=== PATIENT | male | born 1965 | race Caucasian/White ===

== ENCOUNTER 2019-07-09 16:11 | Observation (INO) ==
[2019-07-09 17:23] LABS: BUN/Creatinine Ratio 28 (6-26); Blood Urea Nitrogen 69 mg/dL (6-20); Carbon Dioxide 23 mEq/L (23-29); Chloride 98 mEq/L (98-107); Glucose 141 mg/dL (70-105); Osmolality,Calculated 282 (280-300); Potassium 6.8 mEq/L (3.5-5.1); Sodium 125 mEq/L (136-145); eGFR For African Americans 33 (> 60); eGFR For Non-African Americans 27 (> 60)
[2019-07-09] MEDS ORDERED: *HR* Dextrose 50 % in Water (Syg) 50 ML SYRINGE IVP ONE (17:54)
[2019-07-09] MEDS ORDERED: Insulin Human Regular 10 UNIT in 0.9 % Sodium Chloride 10 ML IV ONE ×2 (17:54→22:32)
[2019-07-09] MEDS ORDERED: 0.9 % Sodium Chloride 1,000 ML IVC ONE (17:55)
[2019-07-09] MEDS ORDERED: Calcium Gluconate 1gm/50mL 1 GM/50 ML BAG IVPB ONE ×2 (17:57→23:00)
[2019-07-09 18:13] LABS: Basophils # 0.1 K/mcL (0.0-0.2); Basophils % 0.4 %; Eosinophils # 0.7 K/mcL (0.0-0.6); Eosinophils % 4.1 %; Hematocrit 28.2 % (37.5-50.1); Hemoglobin 9.7 g/dL (12.9-16.9); Immature Granulocytes % 0.9 % (0-4); Lymphocytes # 0.9 K/mcL (0.6-4.6); Lymphocytes % 5.4 %; Mean Corpuscular HGB Conc 34.4 g/dL (31.6-35.5); Mean Corpuscular Hemoglobin 37.2 pg (28.0-33.3); Mean Platelet Volume 10.3 fL (9.4-12.4); Monocytes # 1.7 K/mcL (0.0-1.3); Monocytes % 10.4 %; Neutrophils # 12.8 K/mcL (1.6-8.9); Platelet Count 218 K/mcL (140-400); Red Blood Count 2.61 M/mcL (4.19-5.50); Red Cell Distribution Width 13.9 % (11.5-14.5); Segmented Neutrophils % 78.8 %; White Blood Count 16.2 K/mcL (4.3-11.1)
[2019-07-09 18:18] LABS: Alanine Aminotransferase 49 Units/L (7-52); Albumin 3.3 g/dL (3.5-5.7); Albumin/Globulin Ratio 1.2 (1.1-2.2); Alkaline Phosphatase 111 Units/L (34-104); Aspartate Amino Transferase 61 Units/L (13-39); Bilirubin,Direct 0.8 mg/dL (0.0-0.2); Bilirubin,Indirect 2.2 mg/dL (0.0-1.2); Globulin 2.8 g/dL (2.4-3.5); Lipase 110 Units/L (11-82); Total Protein 6.1 g/dL (6.4-8.9); Troponin I < 0.03 ng/mL (< 0.04)
[2019-07-09 18:24] LABS: INR 1.5; Prothrombin Time 17.4 Seconds (9.4-12.1)
[2019-07-09 19:34] LABS: Bilirubin,Urine Negative (Negative); Blood,Urine Negative (Negative); Clarity,Urine Clear (Clear); Color,Urine Yellow (Yellow); Glucose,Urine (UA) Normal (Normal); Ketones,Urine Negative (Negative); Leukocyte Esterase,Urine Negative (Negative); Nitrite,Urine Negative (Negative); PH,Urine 5.5 pH Units (5.0-8.0); Protein,Urine Negative (Neg-Trace); Specific Gravity,Urine 1.017 (1.010-1.025); Urobilinogen,Urine Normal (Normal)
[2019-07-09] MEDS ORDERED: Albuterol 2.5 MG/3 ML NEBULIZER IH ONE ×2 (19:40→22:31)
[2019-07-09] MEDS ORDERED: Naloxone 0.4 MG/ML INJ IVP PRN (22:01)
[2019-07-09 22:09] LABS: Calcium 8.9 mg/dL (8.6-10.3); Potassium 6.8 mEq/L (3.5-5.1)
[2019-07-09 22:37] LABS: Sodium, Urine < 10.0 mEq/L
[2019-07-09] MEDS ORDERED: D5% in Water 1,000 ML IVC PRN (22:37)
[2019-07-09] MEDS ORDERED: *HR* Dextrose 50 % in Water (Syg) 50 ML SYRINGE IVP PRN (22:37)
[2019-07-09] MEDS ORDERED: Dextrose Gel 15 GM/37.5 ML TUBE PO PRN ×2 (22:37)
[2019-07-09] MEDS: D5% in 0.9% NACL 1,000 ML IVC SCH (22:45)
[2019-07-09 22:59] LABS: Potassium,Urine 49.9 mEq/L
[2019-07-10 02:28] LABS: Calcium 9.1 mg/dL (8.6-10.3); Potassium 5.4 mEq/L (3.5-5.1)
[2019-07-10 05:40] LABS: Hematocrit 24.5 % (37.5-50.1); Hemoglobin 8.5 g/dL (12.9-16.9); Mean Corpuscular HGB Conc 34.7 g/dL (31.6-35.5); Mean Corpuscular Hemoglobin 36.6 pg (28.0-33.3); Mean Corpuscular Volume 105.6 fL (83.0-100.0); Mean Platelet Volume 9.7 fL (9.4-12.4); Platelet Count 157 K/mcL (140-400); Red Blood Count 2.32 M/mcL (4.19-5.50); White Blood Count 13.9 K/mcL (4.3-11.1)
[2019-07-10 05:54] LABS: Bilirubin,Direct 0.8 mg/dL (0.0-0.2); Bilirubin,Indirect 1.5 mg/dL (0.0-1.2); Bilirubin,Total 2.3 mg/dL (0.3-1.0); Calcium 8.9 mg/dL (8.6-10.3); Potassium 5.4 mEq/L (3.5-5.1)
[2019-07-10 05:58] LABS: Albumin/Globulin Ratio 1.1 (1.1-2.2); Globulin 2.8 g/dL (2.4-3.5); Total Protein 5.8 g/dL (6.4-8.9)
[2019-07-10] MEDS: D5% in 0.9% NACL 1,000 ML IVC SCH (09:07)
[2019-07-10] MEDS: Albumin 25% 25gram/100mL 25 GM/100 ML IV.SOLN IVPB SCH ×3 (11:47→14:55)
[2019-07-10 14:36] LABS: Calcium 8.6 mg/dL (8.6-10.3); Potassium 4.8 mEq/L (3.5-5.1)
[2019-07-10] MEDS ORDERED: Sodium Bicarbonate 75 MEQ in 0.45 % Sodium Chloride 1,000 ML IVC SCH (16:30)
[2019-07-11 05:46] LABS: Basophils # 0.1 K/mcL (0.0-0.2); Basophils % 0.5 %; Eosinophils # 0.8 K/mcL (0.0-0.6); Eosinophils % 7.7 %; Hematocrit 24.8 % (37.5-50.1); Hemoglobin 8.6 g/dL (12.9-16.9); Immature Granulocytes % 0.7 % (0-4); Lymphocytes # 1.2 K/mcL (0.6-4.6); Lymphocytes % 11.9 %; Mean Corpuscular HGB Conc 34.7 g/dL (31.6-35.5); Mean Corpuscular Hemoglobin 36.8 pg (28.0-33.3); Mean Platelet Volume 9.6 fL (9.4-12.4); Monocytes # 1.2 K/mcL (0.0-1.3); Monocytes % 11.4 %; Neutrophils # 6.8 K/mcL (1.6-8.9); Platelet Count 159 K/mcL (140-400); Red Blood Count 2.34 M/mcL (4.19-5.50); Red Cell Distribution Width 13.9 % (11.5-14.5); Segmented Neutrophils % 67.8 %; White Blood Count 10.1 K/mcL (4.3-11.1)
[2019-07-11 06:11] LABS: Calcium 8.7 mg/dL (8.6-10.3); Potassium 4.6 mEq/L (3.5-5.1)
[2019-07-11 11:24] VITALS: BP 110/62
== END 2019-07-11 14:32 | disposition home or self-care (01) ==
LOC: 2ANU 16:11 → EMEROOARM 16:11 → SUATTDRO 20:02 → 2ANU 20:06
PROVIDERS: ADMIT Pediatrics; ATTEND Internal Medicine

== ENCOUNTER 2019-08-26 10:10 | Observation (INO) ==
[2019-08-26 10:57] LABS: Mean Corpuscular Hemoglobin 36.7 pg (28.0-33.3)
[2019-08-26 10:59] LABS: Basophils # 0.1 K/mcL (0.0-0.2); Basophils % 0.8 %; Eosinophils # 0.9 K/mcL (0.0-0.6); Eosinophils % 10.1 %; Hematocrit 22.1 % (37.5-50.1); Hemoglobin 7.9 g/dL (12.9-16.9); Immature Granulocytes % 0.3 % (0-4); Immature Platelets 2.7 % (1.1-6.1); Lymphocytes # 0.7 K/mcL (0.6-4.6); Lymphocytes % 8.2 %; Mean Corpuscular HGB Conc 35.7 g/dL (31.6-35.5); Mean Corpuscular Volume 102.8 fL (83.0-100.0); Mean Platelet Volume 10.8 fL (9.4-12.4); Monocytes # 1.2 K/mcL (0.0-1.3); Monocytes % 13.5 %; Red Blood Count 2.15 M/mcL (4.19-5.50); Red Cell Distribution Width 13.5 % (11.5-14.5); Segmented Neutrophils % 67.1 %; White Blood Count 8.9 K/mcL (4.3-11.1)
[2019-08-26 11:03] LABS: Platelet Count 93 K/mcL (140-400)
[2019-08-26 11:14] LABS: Albumin 3.4 g/dL (3.5-5.7); Albumin/Globulin Ratio 1.6 (1.1-2.2); Bilirubin,Total 2.9 mg/dL (0.3-1.0); Globulin 2.1 g/dL (2.4-3.5); Potassium 6.2 mEq/L (3.5-5.1); Total Protein 5.5 g/dL (6.4-8.9)
[2019-08-26] MEDS ORDERED: Albuterol 2.5 MG/3 ML NEBULIZER IH ONE (11:21)
[2019-08-26] MEDS ORDERED: *HR* Dextrose 50 % in Water (Vial) 50 ML VIAL IVP ONE (11:22)
[2019-08-26] MEDS ORDERED: Insulin Human Regular 10 UNIT in 0.9 % Sodium Chloride 10 ML IV ONE (11:22)
[2019-08-26] MEDS ORDERED: Lactulose Oral Soln 20 GM/30 ML UDC PO ONE (11:30)
[2019-08-26] MEDS ORDERED: Naloxone 0.4 MG/ML INJ IVP PRN (13:44)
[2019-08-26 14:09] LABS: INR 1.8; Prothrombin Time 19.9 Seconds (9.4-12.1)
[2019-08-26 14:12] LABS: Activated Partial Thrombo Time 40.5 Seconds (26.0-36.0)
[2019-08-26 14:55] LABS: Calcium 9.2 mg/dL (8.6-10.3); Potassium 5.6 mEq/L (3.5-5.1)
[2019-08-26] MEDS: Albuterol 2.5 MG/3 ML NEBULIZER IH SCH ×3 (16:16→23:27)
[2019-08-26 18:48] LABS: Chloride,Urine < 15 mEq/L; Sodium, Urine < 10.0 mEq/L
[2019-08-27] MEDS: Albuterol 2.5 MG/3 ML NEBULIZER IH SCH ×2 (03:26→07:31)
[2019-08-27 05:13] LABS: Basophils % 0.4 %; Hemoglobin 7.1 g/dL (12.9-16.9); Lymphocytes % 9.3 %; Red Cell Distribution Width 13.4 % (11.5-14.5)
[2019-08-27 05:15] LABS: Eosinophils # 0.8 K/mcL (0.0-0.6); Eosinophils % 10.2 %; Immature Granulocytes % 0.1 % (0-4); Immature Platelets 2.7 % (1.1-6.1); Lymphocytes # 0.7 K/mcL (0.6-4.6); Mean Corpuscular HGB Conc 35.5 g/dL (31.6-35.5); Mean Corpuscular Hemoglobin 37.4 pg (28.0-33.3); Mean Corpuscular Volume 105.3 fL (83.0-100.0); Mean Platelet Volume 10.7 fL (9.4-12.4); Monocytes % 12.3 %; Neutrophils # 5.4 K/mcL (1.6-8.9); Segmented Neutrophils % 67.7 %
[2019-08-27 05:20] LABS: Platelet Count 82 K/mcL (140-400)
[2019-08-27 05:29] LABS: Magnesium 1.8 mg/dL (1.6-2.6); Phosphorous 6.9 mg/dL (2.7-4.5)
[2019-08-27 06:08] LABS: Folate > 22.3 ng/mL (3.0-16.0); Vitamin B12 1329 pg/mL (250-1100)
[2019-08-27] MEDS ORDERED: Albumin 25% 25gram/100mL 25 GM/100 ML IV.SOLN IVPB ONE (08:33)
[2019-08-27] MEDS ORDERED: Albuterol 2.5 MG/3 ML NEBULIZER IH PRN (10:19)
[2019-08-27 11:18] LABS: Potassium 5.1 mEq/L (3.5-5.1)
[2019-08-27 15:36] LABS: Hematocrit 20.1 % (37.5-50.1); Hemoglobin 7.3 g/dL (12.9-16.9)
[2019-08-27] MEDS ORDERED: 0.9 % Sodium Chloride 250 ML ONE (17:47)
[2019-08-28 04:58] LABS: Red Cell Distribution Width 13.7 % (11.5-14.5)
[2019-08-28 05:00] LABS: Basophils # 0.1 K/mcL (0.0-0.2); Basophils % 0.8 %; Eosinophils # 0.9 K/mcL (0.0-0.6); Eosinophils % 11.7 %; Hematocrit 21.6 % (37.5-50.1); Hemoglobin 7.6 g/dL (12.9-16.9); Immature Granulocytes % 0.3 % (0-4); Immature Platelets 2.9 % (1.1-6.1); Lymphocytes % 9.7 %; Mean Corpuscular HGB Conc 35.2 g/dL (31.6-35.5); Mean Corpuscular Hemoglobin 35.5 pg (28.0-33.3); Mean Corpuscular Volume 100.9 fL (83.0-100.0); Mean Platelet Volume 10.6 fL (9.4-12.4); Monocytes # 1.1 K/mcL (0.0-1.3); Monocytes % 14.4 %; Red Blood Count 2.14 M/mcL (4.19-5.50); Segmented Neutrophils % 63.1 %; White Blood Count 7.7 K/mcL (4.3-11.1)
[2019-08-28 05:09] LABS: Calcium 8.7 mg/dL (8.6-10.3); Potassium 5.6 mEq/L (3.5-5.1)
[2019-08-28 05:49] LABS: Lymphocytes # 0.8 K/mcL (0.6-4.6); Neutrophils # 4.9 K/mcL (1.6-8.9); Platelet Count 73 K/mcL (140-400)
[2019-08-28 11:26] VITALS: BP 100/63
[2019-08-28] MEDS ORDERED: Albumin 25% 25gram/100mL 25 GM/100 ML IV.SOLN IVC SCH (12:30)
[2019-08-28 13:26] LABS: Calcium 9.1 mg/dL (8.6-10.3); Potassium 4.9 mEq/L (3.5-5.1)
== END 2019-08-28 13:24 | disposition home or self-care (01) ==
LOC: 2ANU 10:10 → EMEROOARM 10:10 → SUATTDRO 14:22 → 2ANU 15:06
PROVIDERS: ADMIT Internal Medicine; ATTEND Family Medicine

== ENCOUNTER 2021-11-02 17:00 | Inpatient (IN) ==
[2021-11-02] MEDS ORDERED: dexAMETHasone 4 MG TABLET PO STA (20:44)
[2021-11-02 23:20] LABS: Basophils % 0.3 %; Hematocrit 35.8 % (37.5-50.1); Hemoglobin 12.3 g/dL (12.9-16.9); Immature Granulocytes % 1.4 % (0-4); Lymphocytes # 0.4 K/mcL (0.6-4.6); Lymphocytes % 9.6 %; Mean Corpuscular HGB Conc 34.4 g/dL (31.6-35.5); Mean Corpuscular Hemoglobin 30.7 pg (28.0-33.3); Mean Corpuscular Volume 89.3 fL (83.0-100.0); Mean Platelet Volume 9.9 fL (9.4-12.4); Monocytes # 0.2 K/mcL (0.0-1.3); Monocytes % 6.6 %; Platelet Count 149 K/mcL (140-400); Red Blood Count 4.01 M/mcL (4.19-5.50); Red Cell Distribution Width 12.4 % (11.5-14.5); Segmented Neutrophils % 82.1 %; White Blood Count 3.7 K/mcL (4.3-11.1)
[2021-11-02 23:29] LABS: INR 1.4; Prothrombin Time 15.2 Seconds (9.4-12.1)
[2021-11-02 23:31] LABS: Activated Partial Thrombo Time 38.9 Seconds (26.0-36.0)
[2021-11-02 23:39] LABS: Albumin 3.6 g/dL (3.5-5.7); Albumin/Globulin Ratio 1.3 (1.1-2.2); Bilirubin,Direct 0.2 mg/dL (0.0-0.2); Bilirubin,Indirect 0.3 mg/dL (0.0-1.0); Bilirubin,Total 0.5 mg/dL (0.3-1.0); Calcium 8.1 mg/dL (8.6-10.3); Globulin 2.7 g/dL (2.4-3.5); Magnesium 1.7 mg/dL (1.6-2.6); Phosphorous 2.8 mg/dL (2.7-4.5); Total Protein 6.3 g/dL (6.4-8.9); Troponin I 0.03 ng/mL (< 0.04)
[2021-11-02] MEDS ORDERED: Isovue-370 500 ML BOTTLE IVP ONE (23:42)
[2021-11-02] MEDS ORDERED: 0.9 % Sodium Chloride 1,000 ML IVC SCH (23:45)
[2021-11-03] MEDS ORDERED: Naloxone 0.4 MG/ML INJ IVP PRN (03:20)
[2021-11-03] MEDS ORDERED: Ondansetron 4 MG/2 ML VIAL IVP PRN (03:20)
[2021-11-03] MEDS ORDERED: Acetaminophen 325 MG TABLET PO PRN (03:20)
[2021-11-03] MEDS ORDERED: 0.9 % Sodium Chloride 1,000 ML IVC SCH (04:15)
[2021-11-03] MEDS: *HR* Heparin 5,000 UNIT/ML VIAL SQ SCH ×3 (05:35→20:11)
[2021-11-03 06:09] LABS: Basophils % 0.2 %; Hematocrit 36.2 % (37.5-50.1); Hemoglobin 12.4 g/dL (12.9-16.9); Immature Granulocytes % 1.4 % (0-4); Lymphocytes # 0.3 K/mcL (0.6-4.6); Lymphocytes % 7.9 %; Mean Corpuscular HGB Conc 34.3 g/dL (31.6-35.5); Mean Corpuscular Hemoglobin 31.2 pg (28.0-33.3); Mean Platelet Volume 9.8 fL (9.4-12.4); Monocytes # 0.2 K/mcL (0.0-1.3); Monocytes % 4.2 %; Neutrophils # 3.7 K/mcL (1.6-8.9); Platelet Count 155 K/mcL (140-400); Red Blood Count 3.98 M/mcL (4.19-5.50); Red Cell Distribution Width 12.4 % (11.5-14.5); Segmented Neutrophils % 86.3 %; White Blood Count 4.3 K/mcL (4.3-11.1)
[2021-11-03 06:45] LABS: Adenovirus Not Detected (Not Detect); Bordetella Pertussis Not Detected (Not Detect); Chlamydophila pneumoniae Not Detected (Not Detect); Coronavirus 229E Not Detected (Not Detect); Coronavirus HKU1 Not Detected (Not Detect); Coronavirus NL63 Not Detected (Not Detect); Coronavirus OC43 Not Detected (Not Detect); Human Metapneumovirus Not Detected (Not Detect); Human Rhinovirus/Enterovirus Not Detected (Not Detect); Influenza A Subtype 2009 H1 Not Detected (Not Detect); Influenza B Not Detected (Not Detect); Mycoplasma pneumoniae Not Detected (Not Detect); Parainfluenza Virus 1 Not Detected (Not Detect); Parainfluenza Virus 2 Not Detected (Not Detect); Parainfluenza Virus 3 Not Detected (Not Detect); Parainfluenza Virus 4 Not Detected (Not Detect); Respiratory Syncytial Virus Not Detected (Not Detect)
[2021-11-03 06:48] LABS: Calcium 7.8 mg/dL (8.6-10.3); Magnesium 1.8 mg/dL (1.6-2.6); Potassium 4.5 mEq/L (3.5-5.1); Thyroid Stimulating Hormone 0.818 mcIU/mL (0.340-5.600)
[2021-11-03 06:48] LABS: SARS-CoV-2 DETECTED (Not Detect)
[2021-11-03] MEDS ORDERED: Remdesivir 200 MG in 0.9 % Sodium Chloride 100 ML IVPB ONE (09:33)
[2021-11-03] MEDS: Aspirin Enteric Coated 81 MG Tablet PO SCH (09:35)
[2021-11-03] MEDS: Metoprolol 100 MG TABLET PO SCH (09:36)
[2021-11-03] MEDS: Cyanocobalamin (B-12) 1,000 MCG TABLET PO SCH (09:37)
[2021-11-03] MEDS: Azithromycin 500 MG in 0.9 % Sodium Chloride 250 ML IVPB SCH (09:37)
[2021-11-03] MEDS: cefTRIAXone 2,000 MG in Water for inj. (sterile) 20 ML IVP SCH (10:03)
[2021-11-03] MEDS: (Tacrolimus [Prograf] 1 MG Capsule) PO SCH ×2 (10:05→20:11)
[2021-11-03] MEDS: Mycophenolate Sodium (DR) 180 MG TABLET.DR PO SCH ×3 (13:11→20:11)
[2021-11-04] MEDS: *HR* Heparin 5,000 UNIT/ML VIAL SQ SCH ×3 (05:07→21:22)
[2021-11-04 05:29] LABS: Bilirubin,Urine Negative (Negative); Blood,Urine Small (Negative); Clarity,Urine Clear (Clear); Color,Urine Light-Yellow (Yellow); Glucose,Urine (UA) Normal (Normal); Ketones,Urine Negative (Negative); Leukocyte Esterase,Urine Negative (Negative); Nitrite,Urine Negative (Negative); Protein,Urine 100 mg/dL (Neg-Trace); RBC,Urine 0-3 per hpf (0-3); Specific Gravity,Urine 1.016 (1.010-1.025); Squamous Epithelial Cell,Urine Few per hpf (None-Few); Urobilinogen,Urine Normal (Normal); WBC,Urine 0-3 per hpf (0-3)
[2021-11-04] MEDS: cefTRIAXone 2,000 MG in Water for inj. (sterile) 20 ML IVP SCH (09:26)
[2021-11-04] MEDS: Azithromycin 500 MG in 0.9 % Sodium Chloride 250 ML IVPB SCH (09:26)
[2021-11-04] MEDS: Aspirin Enteric Coated 81 MG Tablet PO SCH ×2 (09:28→10:30)
[2021-11-04] MEDS: Cyanocobalamin (B-12) 1,000 MCG TABLET PO SCH ×2 (09:28→10:30)
[2021-11-04] MEDS: Metoprolol 100 MG TABLET PO SCH ×2 (09:28→10:30)
[2021-11-04 09:38] LABS: Hematocrit 39.2 % (37.5-50.1); Hemoglobin 13.3 g/dL (12.9-16.9); Mean Corpuscular HGB Conc 33.9 g/dL (31.6-35.5); Mean Corpuscular Hemoglobin 30.3 pg (28.0-33.3); Mean Corpuscular Volume 89.3 fL (83.0-100.0); Mean Platelet Volume 9.7 fL (9.4-12.4); Platelet Count 232 K/mcL (140-400); Red Blood Count 4.39 M/mcL (4.19-5.50); Red Cell Distribution Width 12.6 % (11.5-14.5)
[2021-11-04] MEDS: Remdesivir 100 MG in 0.9 % Sodium Chloride 100 ML IVPB SCH (09:39)
[2021-11-04 09:40] LABS: White Blood Count 7.9 K/mcL (4.3-11.1)
[2021-11-04 10:01] LABS: Albumin 3.7 g/dL (3.5-5.7); Albumin/Globulin Ratio 1.4 (1.1-2.2); Bilirubin,Direct 0.1 mg/dL (0.0-0.2); Bilirubin,Indirect 0.3 mg/dL (0.0-1.0); Bilirubin,Total 0.4 mg/dL (0.3-1.0); Calcium 8.5 mg/dL (8.6-10.3); Globulin 2.6 g/dL (2.4-3.5); Potassium 4.4 mEq/L (3.5-5.1); Total Protein 6.3 g/dL (6.4-8.9)
[2021-11-04] MEDS: (Tacrolimus [Prograf] 1 MG Capsule) PO SCH ×2 (10:24→21:21)
[2021-11-05 02:44] VITALS: BP 147/71
[2021-11-05] MEDS: *HR* Heparin 5,000 UNIT/ML VIAL SQ SCH ×2 (06:03→14:08)
[2021-11-05 08:26] VITALS: PULSE 55; TEMP 98
[2021-11-05] MEDS: Cyanocobalamin (B-12) 1,000 MCG TABLET PO SCH (10:51)
[2021-11-05] MEDS: Aspirin Enteric Coated 81 MG Tablet PO SCH (10:51)
[2021-11-05] MEDS: Metoprolol 100 MG TABLET PO SCH (10:51)
[2021-11-05] MEDS: (Tacrolimus [Prograf] 1 MG Capsule) PO SCH (10:52)
[2021-11-05] MEDS: cefTRIAXone 2,000 MG in Water for inj. (sterile) 20 ML IVP SCH (10:55)
[2021-11-05] MEDS: Remdesivir 100 MG in 0.9 % Sodium Chloride 100 ML IVPB SCH (10:56)
[2021-11-05 11:16] VITALS: O2SAT 98
[2021-11-05] MEDS: Azithromycin 500 MG in 0.9 % Sodium Chloride 250 ML IVPB SCH (12:38)
== END 2021-11-05 15:13 | disposition home or self-care (01) | DRG 177 ==
LOC: 3ANU 17:00 → EMEROOARM 17:00 → OBSVTOIN 11-03 02:26 → SUATTDRO 11-03 02:26 → 3ANU 11-03 03:05
PROVIDERS: ADMIT Internal Medicine; ATTEND Internal Medicine